=== PATIENT | female | born 1955 | race Two or more races ===

== ENCOUNTER 2022-05-02 10:50 | Emergency (ER) | payer OTHER, MEDICARE ==
[~2022-05-02] VITALS: Ht 149.9 cm; Wt 72.6 kg
[2022-05-02] MEDS ORDERED: KETOROLAC TROMETH 60MG/2ML VIAL IM ONE (14:30)
[2022-05-02 14:31] VITALS: BP 163/95
[2022-05-02] MEDS ORDERED: ACE3T PO (14:48)
[2022-05-02] MEDS ORDERED: CYCL-837 PO (14:48)
== END 2022-05-02 15:38 | disposition home or self-care (01) ==
LOC: ER 10:50
DX: S46.912A Strain of unspecified muscle, fascia and tendon at shoulder and upper arm level, left arm, initial encounter (principal); S13.9XXA Sprain of joints and ligaments of unspecified parts of neck, initial encounter; I10 Essential (primary) hypertension; X58.XXXA Exposure to other specified factors, initial encounter; Y93.89 Activity, other specified; Y92.89 Other specified places as the place of occurrence of the external cause; Y99.8 Other external cause status
CPT/HCPCS: 73030; 93005; 96372; 99283; J1885

== ENCOUNTER 2023-01-31 12:27 | Emergency (ER) | payer MEDICARE, OTHER ==
[~2023-01-31] VITALS: Ht 149.9 cm; Wt 78.2 kg
[~2023-01-31 12:27] MED LIST: ACE3T PO; CYCL-837 PO
[2023-01-31] MEDS ORDERED: methylPREDNISolone SOD SUCC 125 MG/2 ML VL IM ONE (17:00)
[2023-01-31] MEDS ORDERED: KETOROLAC TROMETH 30 MG/ML 1ML VIAL IM ONE (17:00)
[2023-01-31] MEDS ORDERED: CYCL-837 PO (18:21)
[2023-01-31 20:41] VITALS: BP 184/93
== END 2023-01-31 20:56 | disposition home or self-care (01) ==
LOC: ER 12:27
DX: S13.9XXA Sprain of joints and ligaments of unspecified parts of neck, initial encounter (principal); G44.209 Tension-type headache, unspecified, not intractable; I10 Essential (primary) hypertension; X50.1XXA Overexertion from prolonged static or awkward postures, initial encounter; Y93.89 Activity, other specified; Y92.89 Other specified places as the place of occurrence of the external cause; Y99.8 Other external cause status
CPT/HCPCS: 93005; 96372; 99284; J1885; J2930